=== PATIENT | male | born 1990 | race African-American/Black ===

== ENCOUNTER 2016-11-28 13:13 | Emergency (ER) | payer SELFPAY ==
[~2016-11-28] VITALS: Ht 177.8 cm; Wt 115.0 kg
[~2016-11-28 13:13] MED LIST: ALBU17I INH; PRED20 PO; PROM6.257 PO; Z.0.NO CURRENT MEDS
[2016-11-28 13:15] VITALS: BP 135/96; PULSE 70; RESP 20; TEMP 98.3; O2SAT 98
--- NOTE | 2016-11-28 13:25 | PD ---
Physical Exam Time Seen by Provider: 13:05 Narrative 26 year old male presents to ED by private vehicle for evaluation of multiple C/ O. He reports headache, dizziness, SOB, and back pain x 2 days. He denies fever , chills, chest pain, ABD pain, N/V/D. Patient seen at triage desk. He appears stable, nontoxic appearing. VS reviewed. Patient waiting bed placement. Data Data Last Documented VS Vital Signs Date Time Temp Pulse Resp B/P Pulse Ox O2 Delivery O2 Flow Rate FiO2 11/28/16 13:15 98.3 70 20 135/96 98 Room Air MDM Supervised Visit with DICK: Nina Yang Nov 28, 2016 13:25
[2016-11-28 14:26] VITALS: O2SAT 100
[2016-11-28] MEDS ORDERED: MORPHINE SULFATE 4 MG/ML INJ IV PUSH ONE (14:30)
[2016-11-28] MEDS ORDERED: SODIUM CHLORIDE 0.9% FLUSH 10 ML FLUSH IVF PRN (14:30)
[2016-11-28 14:59] LABS: AUTOMATED NEUTROPHIL # 4.2 TH/MM3 (1.8-7.7); BASOPHIL % 0.4 % (0.0-2.0); EOSINOPHIL # 0.3 TH/MM3 (0-0.4); EOSINOPHIL % 4.3 % (0.0-4.0); HEMATOCRIT 45.4 % (39.0-51.0); HEMO FLAGS DIFF FINAL; LYMPH % 30.4 % (9.0-44.0); LYMPHOCYTE # 2.3 TH/MM3 (1.0-4.8); MEAN CELL VOLUME 89.1 FL (80.0-100.0); MEAN CORPUSCULAR HEMOGLOBIN 28.6 PG (27.0-34.0); MEAN CORPUSCULAR HGB CONC 32.1 % (32.0-36.0); MONO % 8.7 % (0.0-8.0); NEUT % 56.2 % (16.0-70.0); PLATELET COUNT 303 TH/MM3 (150-450); RED CELL DISTRIBUTION WIDTH 14.3 % (11.6-17.2); WHITE BLOOD COUNT 7.5 TH/MM3 (4.0-11.0)
--- NOTE | 2016-11-28 15:16 | RADRPT ---
EXAM DATE/TIME: 11/28/2016 14:21 [facility] COMPARISON: No previous studies available for comparison. INDICATIONS : Patient has had chest pain and dizziness since yesterday. MEDICAL HISTORY : None. SURGICAL HISTORY : None. ENCOUNTER: Initial ACUITY: 1 day PAIN SCORE: 7/10 LOCATION: Bilateral chest FINDINGS: A single view of the chest demonstrates the lungs to be symmetrically aerated without evidence of mas s, infiltrate or effusion. The cardiomediastinal contours are unremarkable. Osseous structures are intact. CONCLUSION: 1. No acute cardiopulmonary disease. Hector Sosa MD on November 28, 2016 at 15:14 Board Certified Radiologist. This report was verified electronically.
[2016-11-28 15:34] LABS: APTT (PATIENT) 27.2 SEC (24.3-30.1); PROTHROMBIN TIME - PATIENT 10.8 SEC (9.8-11.6)
[2016-11-28] MEDS ORDERED: IOHEXOL 350 MG/ML 10 ML VIAL (for RAD DIAG) IV ONE (15:37)
[2016-11-28 15:38] LABS: ALT (GPT) 58 U/L (12-78); ANION GAP 6 MEQ/L (5-15); AST (GOT) 29 U/L (15-37); BICARBONATE 28.5 MEQ/L (21.0-32.0); BLOOD UREA NITROGEN 7 MG/DL (7-18); CHLORIDE 106 MEQ/L (98-107); GLOMERULAR FILTRATION RATE 102 ML/MIN (>89); POTASSIUM 3.9 MEQ/L (3.5-5.1); SODIUM (NA) 140 MEQ/L (136-145)
[2016-11-28 15:42] LABS: ALKALINE PHOSPHATASE 73 U/L (45-117); CREATINE KINASE 958 U/L (39-308); TOTAL BILIRUBIN ADULT 0.4 MG/DL (0.2-1.0)
--- NOTE | 2016-11-28 15:49 | RADRPT ---
EXAM DATE/TIME: 11/28/2016 15:25 [facility] COMPARISON: No previous studies available for comparison. INDICATIONS : Evaluate for embolism. IV CONTRAST: 50 cc Omnipaque 350 (iohexol) IV RADIATION DOSE: 56.44 CTDIvol (mGy) MEDICAL HISTORY : None SURGICAL HISTORY : None. ENCOUNTER: Initial ACUITY: 2 days PAIN SCALE: 7/10 LOCATION: Bilateral chest TECHNIQUE: Volumetric scanning of the chest was performed using a pulmonary embolism protocol MIP images were re constructed. Using automated exposure control and adjustment of the mA and/or kV according to patien t size, radiation dose was kept as low as reasonably achievable to obtain optimal diagnostic quality images. FINDINGS: PULMONARY ARTERIES: No filling defects are seen in the pulmonary arteries through the segmental level. LUNGS: There is no consolidation or pneumothorax . No concerning pulmonary nodule is visualized. Minimal po sterior bibasilar atelectasis is noted. PLEURAE: There is no pleural thickening or pleural effusion. MEDIASTINUM: There is good visualization of the great vessels of the middle mediastinum. No evidence of mediastin al or hilar adenopathy/mass. MUSCULOSKELETAL: Within normal limits for patient age. MISCELLANEOUS: Examination was somewhat limited due to patient motion during scanning. CONCLUSION: Somewhat limited examination due to patient motion during scanning. No evidence of pu lmonary embolism. Minimal posterior bibasilar atelectasis. Masood Chicas MD on November 28, 2016 at 15:43 Board Certified Radiologist. This report was verified electronically.
[2016-11-28 15:55] LABS: CKMB 5.2 NG/ML (0.5-3.6)
[2016-11-28] MEDS ORDERED: SODIUM CHLOR 0.9% 1000 ML INJ 1,000 ML IV ONE (16:00)
[2016-11-28] MEDS ORDERED: CYCLOBENZAPRINE HCL 10 MG TAB PO ONE (16:15)
[2016-11-28] MEDS ORDERED: CYCL1TAB29 PO (16:25)
--- NOTE | 2016-11-28 16:26 | PD ---
HPI Chief Complaint: Respiratory Distress Time Seen by Provider: 14:14 Travel History International Travel<30 days: No Contact w/Intl Traveler<30days: No Traveled to known affect area: No History of Present Illness HPI Patient is a 26-year-old male who comes in complaining of chest pain and shortness of breath as well as lower back pain. He says he has had the low back pain for the past 4 days. 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 He then said that 2 days ago he developed chest pain and shortness of breath. He denies any fever or chills. He does have history of anxiety. He denies any stimulant use. He denies any family history of early cardiac issues. He denies any cough or cold. He denies any numbness or tingling in his extremities. [facility] Past Medical History Asthma: Yes ( CHILD) Musculoskeletal: Yes (RT KNEE 'POPS' DUE TO OLD INJURY) Social History Alcohol Use: Yes (OCCASIONAL) Tobacco Use: Yes (1-2 CIGARETTES DAILY) Substance Use: No (DENIES) Allergies-Medications (Allergen,Severity, Reaction): Coded Allergies: Motrin (Verified Allergy, Severe, ABD PAIN AND ITCHING, 11/28/16) Reported Meds & Prescriptions Reported Meds & Active Scripts Active No Active Prescriptions or Reported Medications Review of Systems Except as stated in HPI: all other systems reviewed are Neg General / Constitutional: No: Fever, Chills Eyes: No: Blurred Vision HENT: No: Vertigo, Lightheadedness Cardiovascular: Positive: Chest Pain or Discomfort Respiratory: Positive: Shortness of Breath Gastrointestinal: Positive: Nausea, No: Vomiting, Abdominal Pain Musculoskeletal: Positive: Pain, No: Myalgias Skin: No Rash, No Change in Pigmentation Neurologic: No: Weakness, Dizziness Psychiatric: Positive: Anxiety Physical Exam Narrative GENERAL: Awake and alert, appears anxious. SKIN: Focused skin assessment warm/dry. HEAD: Atraumatic. Normocephalic. EYES: Pupils equal and round. No scleral icterus. ENT: No nasal bleeding or discharge. Mucous membranes pink and moist. NECK: Trachea midline. No JVD. CARDIOVASCULAR: Regular rate and rhythm. No murmur appreciated. RESPIRATORY: No accessory muscle use. Clear to auscultation. Breath sounds equal bilaterally. GASTROINTESTINAL: Abdomen soft, non-tender, nondistended. MUSCULOSKELETAL: No obvious deformities. No clubbing. No cyanosis. No edema. Tender to palpation of the paraspinal muscles of the lumbar spine. NEUROLOGICAL: Awake and alert. No obvious cranial nerve deficits. Motor grossly within normal limits. Normal speech. PSYCHIATRIC: Appropriate mood and affect; insight and judgment normal. Data Data Last Documented VS Vital Signs Date Time Temp Pulse Resp B/P Pulse Ox O2 Delivery O2 Flow Rate FiO2 11/28/16 14:26 100 Room Air 11/28/16 14:14 30 2 11/28/16 13:15 98.3 70 135/96 Orders Ckmb (Isoenzyme) Profile (11/28/16 14:23) Complete Blood Count With Diff (11/28/16 14:23) Comprehensive Metabolic Panel (11/28/16 14:) D-Dimer (11/28/16:23) Prothrombin Time / Inr (Pt) (11/28/16 14:23) Act Partial Throm Time (Ptt) (11/28/16 14:23) Troponin I (11/28/16 14:23) Lipase (11/28/16 14:23) Chest, Single Ap (11/28/16 14:23) Ecg Monitoring (11/28/16 14:23) Iv Access Insert/Monitor (11/28/16 14:23) Oximetry (11/28/16 14:23) Oxygen Administration (11/28/16 14:23) Sodium Chloride 0.9% Flush (Ns Flush) (11/28/16 14:30) Ct Pulmonary Angiogram (11/28/16 14:23) Morphine Inj (Morphine Inj) (11/28/16 14:30) Electrocardiogram (11/28/16 ) Iohexol 350 Inj (Omnipaque 350 Inj) (11/28/16 15:37) CKMB (11/28/16 14:29) CKMB% (11/28/16 14:29) Sodium Chlor 0.9% 1000 Ml Inj (Ns 1000 M (11/28/16 16:00) Cyclobenzaprine (Flexeril) (11/28/16 16:15) Labs Laboratory Tests Test 11/28/16 14:29 White Blood Count 7.5 TH/MM3 Red Blood Count 5.10 MIL/MM3 Hemoglobin 14.6 GM/DL Hematocrit 45.4 % Mean Corpuscular Volume 89.1 FL Mean Corpuscular Hemoglobin 28.6 PG Mean Corpuscular Hemoglobin 32.1 % Concent Red Cell Distribution Width 14.3 % Platelet Count 303 TH/MM3 Mean Platelet Volume 8.1 FL Neutrophils (%) (Auto) 56.2 % Lymphocytes (%) (Auto) 30.4 % Monocytes (%) (Auto) 8.7 % Eosinophils (%) (Auto) 4.3 % Basophils (%) (Auto) 0.4 % Neutrophils # (Auto) 4.2 TH/MM3 Lymphocytes # (Auto) 2.3 TH/MM3 Monocytes # (Auto) 0.6 TH/MM3 Eosinophils # (Auto) 0.3 TH/MM3 Basophils # (Auto) 0.0 TH/MM3 CBC Comment DIFF FINAL Differential Comment Prothrombin Time 10.8 SEC Prothromb Time International 1.0 RATIO Ratio Activated Partial 27.2 SEC Thromboplast Time D-Dimer Quantitative (PE/DVT) LESS THAN 0.19 MG/L FEU Sodium Level 140 MEQ/L Potassium Level 3.9 MEQ/L Chloride Level 106 MEQ/L Carbon Dioxide Level 28.5 MEQ/L Anion Gap 6 MEQ/L Blood Urea Nitrogen 7 MG/DL Creatinine 1.06 MG/DL Estimat Glomerular Filtration 102 ML/MIN Rate Random Glucose 81 MG/DL Calcium Level 9.6 MG/DL Total Bilirubin 0.4 MG/DL Aspartate Amino Transf 29 U/L (AST/SGOT) Alanine Aminotransferase 58 U/L (ALT/SGPT) Alkaline Phosphatase 73 U/L Total Creatine Kinase 958 U/L Creatine Kinase MB 5.2 NG/ML Creatine Kinase MB % 0.5 % Troponin I LESS THAN 0.02 NG/ML Total Protein 7.6 GM/DL Albumin 4.0 GM/DL Lipase 220 U/L [facility] Medical Decision Making Medical Screen Exam Complete: Yes Emergency Medical Condition: Yes Medical Record Reviewed: Yes (ECG shows sinus rhythm at 70, early re-pole,) Interpretation(s) ECG shows sinus rhythm at 70, early re-pole, no signs of ischemia Differential Diagnosis Pneumonia versus pneumothorax versus PE versus anxiety versus low back pain Narrative Course Patient is a 26-year-old male who comes in complaining of back pain, chest pain , shortness of breath. Exam shows tenderness to the low back. There is no neurologic abnormalities. 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 Labs show an elevated total CK with slightly elevated CK-MB fraction, this is likely just due to the total being elevated. Troponin is negative. Pain is been going on for 2 days. Patient given IV fluids. Given Toradol, given Flexeril. He is asking for a note for work. Patient advised to follow-up with a primary care doctor. He is advised to avoid any drugs or smoking in the future. Advised to return to the ED as needed for any worsening symptoms. Patient is comfortable with discharge at this time. Diagnosis Primary Impression: Back pain Qualified Code: M54.5 - Acute bilateral low back pain without sciatica Additional Impressions: Rhabdomyolysis Qualified Code: M62.82 - Non-traumatic rhabdomyolysis Dehydration Patient Instructions: Chest Pain (ED), Dehydration (ED), General Instructions, Rhabdomyolysis (ED) Additional Instructions: Follow-up with her primary care doctor. Avoid smoking or drug use. Drink plenty of water. Return to the emergency department as needed for any worsening symptoms. Scripts Cyclobenzaprine (Flexeril)10 Mg Tab10 Mg PO TID #15 TAB Ref 0 Prov:Tasha Dixon MD 11/28/16 Disposition: 01 DISCHARGE HOME Condition: Stable Tasha Dixon MD Nov 28, 2016 16:25
--- NOTE | 2016-11-29 15:18 | EKG ---
Date Performed: 11/28/2016 Time Performed: 14:17:27 PTAGE: 26 years EKG: Sinus rhythm EARLY REPOLARIZATION BORDERLINE ECG Compared to prior tracing no significant change PREVIOUS TRACING : 12/31/2009 04.22 DOCTOR: Roderick Oreilly Interpretating Date/Time 11/29/2016 15:16:09
== END 2016-11-28 17:34 | disposition home or self-care (01) ==
LOC: NEPD 13:13
DX: M54.5 Low back pain (principal); M62.82 Rhabdomyolysis; E86.0 Dehydration; R94.31 Abnormal electrocardiogram [ECG] [EKG]; Z72.0 Tobacco use
CPT/HCPCS: 71010; 71275; 80053; 82550; 82552; 83690; 84484; 85025; 85379; 85610; 85730; 93005; 96374; 99285; J2270; J7030; Q9967